=== PATIENT | male | born 1955 | race Caucasian/White ===

== ENCOUNTER 2018-07-13 07:47 | Inpatient (IN) | payer BC ==
[2018-07-13] MEDS ORDERED: DILTIAZEM DRIP BOLUS FROM BAG 1 MG SOLN IV ONE (08:10)
[2018-07-13] MEDS ORDERED: SODIUM CHLORIDE 0.9% 1,000 ML IV STA (08:10)
[2018-07-13] MEDS: DILTIAZEM 50 MG in SODIUM CHLORIDE 0.9% 40 ML IV SCH ×2 (08:34→15:29)
[2018-07-13 08:39] LABS: Basophils # (A) 0.1 k/uL (0-0.2); Basophils % (A) 2 %; Eosinophils # (A) 0.2 k/uL (0-0.7); Eosinophils % (A) 4 %; HCT 44.3 % (39.0-53.0); HGB 13.9 gm/dL (13.0-17.5); Lymphocytes # (A) 1.2 k/uL (1.0-4.8); Lymphocytes % (A) 24 %; MCH 28.4 pg (25.0-35.0); MCHC 31.4 g/dL (31.0-37.0); MCV 90.4 fL (80.0-100.0); Mean Platelet Volume 6.5; Monocytes # (A) 0.4 k/uL (0-1.0); Monocytes % (A) 7 %; Neutrophils # (A) 3.1 k/uL (1.3-7.7); Neutrophils % (A) 61 %; Platelet Count 219 k/uL (150-450); RDW 13.6 % (11.5-15.5); WBC 5.1 k/uL (3.8-10.6)
--- NOTE | 2018-07-13 08:42 | ED ---
General Adult HPI - General Chief complaint: Arrhythmia/Palpitations Stated complaint: A fib Time Seen by Provider: 07/13/18 07:56 Source: patient, RN notes reviewed, old records reviewed Mode of arrival: wheelchair Limitations: no limitations - History of Present Illness Initial comments: This is a 63-year-old male the ER for evaluation. They presents for evaluation during new-onset atrial fibrillation. Patient sent in from preop for wrist surgery. Patient denies any symptoms earlier in the day he was having a little bit of palpitations earlier today. There is significant symptoms of tachycardia palpitations prior. No history of heart disease, no new medications. Patient denies any recent fevers drug or alcohol abuse - Related Data Home Medications Medication Instructions Recorded Confirmed Losartan Potassium [Cozaar] 100 mg PO DAILY 06/09/14 07/13/18 Pravastatin Sodium [Pravachol] 40 mg PO DAILY 06/09/14 07/13/18 Multivit-Min/FA/Lycopen/Lutein 1 tab PO DAILY 05/25/16 07/13/18 [Centrum Silver Tablet] Ibuprofen [Motrin] 800 mg PO TID PRN 07/13/18 07/13/18 Tamsulosin HCl [Flomax] 0.4 mg PO BID 07/13/18 07/13/18 Ubidecarenone [Co Q-10] 100 mg PO DAILY 07/13/18 07/13/18 Previous Rx's Medication Instructions Recorded EPINEPHrine [Epipen 2-Iraj] 0.3 mg IM ONCE PRN #1 ml 06/09/14 Allergies Allergy/AdvReac Type Severity Reaction Status Date / Time venom-honey bee Allergy Anaphylaxis Verified 07/13/18 08:43 [bee venom (honey bee)] Review of Systems ROS Statement: Those systems with pertinent positive or pertinent negative responses have been documented in the HPI. ROS Other: All systems not noted in ROS Statement are negative. Past Medical History Past Medical History: Hyperlipidemia, Hypertension Additional Past Medical History / Comment(s): brain tumors History of Any Multi-Drug Resistant Organisms: None Reported Past Surgical History: Joint Replacement Additional Past Surgical History / Comment(s): nael hip replacement Past Psychological History: No Psychological Hx Reported Smoking Status: Former smoker Past Alcohol Use History: Daily Past Drug Use History: None Reported General Exam Limitations: no limitations General appearance: alert, in no apparent distress Head exam: Present: atraumatic, normocephalic, normal inspection Eye exam: Present: normal appearance, PERRL, EOMI. Absent: scleral icterus, conjunctival injection, periorbital swelling ENT exam: Present: normal exam, mucous membranes moist Neck exam: Present: normal inspection. Absent: tenderness, meningismus, lymphadenopathy Respiratory exam: Present: normal lung sounds bilaterally. Absent: respiratory distress, wheezes, rales, rhonchi, stridor Cardiovascular Exam: Present: tachycardia, irregular rhythm, normal heart sounds. Absent: systolic murmur, diastolic murmur, rubs, gallop, clicks GI/Abdominal exam: Present: soft, normal bowel sounds. Absent: distended, tenderness, guarding, rebound, rigid Extremities exam: Present: normal inspection, full ROM, normal capillary refill. Absent: tenderness, pedal edema, joint swelling, calf tenderness Back exam: Present: normal inspection Neurological exam: Present: alert, oriented X3, CN II-XII intact Psychiatric exam: Present: normal affect, normal mood Skin exam: Present: warm, dry, intact, normal color. Absent: rash Course Vital Signs 07/13/18 07/13/18 07/13/18 07:50 08:30 08:40 Temperature 98.7 F Pulse Rate 64 115 H 99 Respiratory 18 18 18 Rate Blood Pressure 113/69 125/77 127/70 O2 Sat by Pulse 97 99 99 Oximetry 07/13/18 07/13/18 09:25 10:24 Temperature Pulse Rate 88 95 Respiratory 16 16 Rate Blood Pressure 129/70 126/72 O2 Sat by Pulse 98 98 Oximetry - Reevaluation(s) Reevaluation #1: 07/13/18 09:47 Patient is showing adequate heart rate control here in the ER Reevaluation #2: 07/13/18 09:47 Patient is relatively asymptomatic with no chest pain Reevaluation #3: 07/13/18 09:48 Medical record is reviewed from preop EKG Findings - EKG Comments: EKG Findings:: EKG shows A. fib with RVR rate of 103, QRS 82, QTc 429 Medical Decision Making - Medical Decision Making 63 male new-onset A. fib with RVR will be admitted for cardiology consultation, rate control and anticoagulation - Lab Data Result diagrams: 07/13/18 08:05 07/13/18 08:05 Lab Results 09/05/2307/13/18 07/13/18 Range/Units 08:05 08:05 08:05 WBC 5.1 (3.8-10.6) k/uL RBC 4.90 (4.30-5.90) m/uL Hgb 13.9 (13.0-17.5) gm/dL Hct 44.3 (39.0-53.0) % MCV 90.4 (80.0-100.0) fL MCH 28.4 (25.0-35.0) pg MCHC 31.4 (31.0-37.0) g/dL RDW 13.6 (11.5-15.5) % Plt Count 219 (150-450) k/uL Neutrophils % 61 % Lymphocytes % 24 % Monocytes % 7 % Eosinophils % 4 % Basophils % 2 % Neutrophils # 3.1 (1.3-7.7) k/uL Lymphocytes # 1.2 (1.0-4.8) k/uL Monocytes # 0.4 (0-1.0) k/uL Eosinophils # 0.2 (0-0.7) k/uL Basophils # 0.1 (0-0.2) k/uL PT (9.0-12.0) sec INR (<1.2) APTT (22.0-30.0) sec D-Dimer (<0.60) mg/L FEU Sodium 141 (137-145) mmol/L Potassium 4.5 (3.5-5.1) mmol/L Chloride 109 H (98-107) mmol/L Carbon Dioxide 23 (22-30) mmol/L Anion Gap 9 mmol/L BUN 22 H (9-20) mg/dL Creatinine 1.02 (0.66-1.25) mg/dL Est GFR (CKD-EPI)AfAm 90 (>60 ml/min/1.73 sqM) Est GFR (CKD-EPI)NonAf 78 (>60 ml/min/1.73 sqM) Glucose 93 (74-99) mg/dL Calcium 9.4 (8.4-10.2) mg/dL Magnesium 2.0 (1.6-2.3) mg/dL Total Bilirubin 0.7 (0.2-1.3) mg/dL AST 26 (17-59) U/L ALT 27 (21-72) U/L Alkaline Phosphatase 72 (38-126) U/L Total Creatine Kinase 163 (55-170) U/L CK-MB (CK-2) 2.6 H (0.0-2.4) ng/mL CK-MB (CK-2) Rel Index 1.6 Troponin I 0.015 (0.000-0.034) ng/mL Total Protein 7.1 (6.3-8.2) g/dL Albumin 4.0 (3.5-5.0) g/dL TSH 1.900 (0.465-4.680) mIU/L 07/13/18 Range/Units 08:05 WBC (3.8-10.6) k/uL RBC (4.30-5.90) m/uL Hgb (13.0-17.5) gm/dL Hct (39.0-53.0) % MCV (80.0-100.0) fL MCH (25.0-35.0) pg MCHC (31.0-37.0) g/dL RDW (11.5-15.5) % Plt Count (150-450) k/uL Neutrophils % % Lymphocytes % % Monocytes % % Eosinophils % % Basophils % % Neutrophils # (1.3-7.7) k/uL Lymphocytes # (1.0-4.8) k/uL Monocytes # (0-1.0) k/uL Eosinophils # (0-0.7) k/uL Basophils # (0-0.2) k/uL PT 10.6 (9.0-12.0) sec INR 1.1 (<1.2) APTT 23.0 (22.0-30.0) sec D-Dimer 0.60 H (<0.60) mg/L FEU Sodium (137-145) mmol/L Potassium (3.5-5.1) mmol/L Chloride (98-107) mmol/L Carbon Dioxide (22-30) mmol/L Anion Gap mmol/L BUN (9-20) mg/dL Creatinine (0.66-1.25) mg/dL Est GFR (CKD-EPI)AfAm (>60 ml/min/1.73 sqM) Est GFR (CKD-EPI)NonAf (>60 ml/min/1.73 sqM) Glucose (74-99) mg/dL Calcium (8.4-10.2) mg/dL Magnesium (1.6-2.3) mg/dL Total Bilirubin (0.2-1.3) mg/dL AST (17-59) U/L ALT (21-72) U/L Alkaline Phosphatase (38-126) U/L Total Creatine Kinase (55-170) U/L CK-MB (CK-2) (0.0-2.4) ng/mL CK-MB (CK-2) Rel Index Troponin I (0.000-0.034) ng/mL Total Protein (6.3-8.2) g/dL Albumin (3.5-5.0) g/dL TSH (0.465-4.680) mIU/L - Radiology Data Radiology results: report reviewed (Chest x-rays negative CTA chest is negative) , image reviewed Critical Care Time Critical Care Time: Yes Total Critical Care Time: 31 Disposition Clinical Impression: Atrial fibrillation with RVR Disposition: ADMITTED IP TO THIS [facility] Condition: Undetermined Is patient prescribed a controlled substance at d/c from ED?: No Referrals: Jermaine Bhakta MD [Primary Care Provider] - 1-2 days
[2018-07-13 08:50] LABS: INR 1.1 (<1.2); Prothrombin Time 10.6 sec (9.0-12.0)
[2018-07-13 08:57] LABS: Calcium 9.4 mg/dL (8.4-10.2); Potassium 4.5 mmol/L (3.5-5.1); Total Bilirubin 0.7 mg/dL (0.2-1.3); Total Protein 7.1 g/dL (6.3-8.2)
[2018-07-13 09:05] LABS: D-Dimer 0.6 mg/L FEU (<0.60)
[2018-07-13 09:17] LABS: Creatine Kinase MB 2.6 ng/mL (0.0-2.4); Troponin I 0.015 ng/mL (0.000-0.034)
--- NOTE | 2018-07-13 10:15 | CT ---
CT CHEST FOR PULMONARY EMBOLISM. EXAMINATION TYPE: CT angio chest DATE OF EXAM: 07/13/2018 INDICATION: Atrial fib, chest pains CT DLP: 526 mGycm, Automated exposure control for dose reduction was used. CONTRAST: Patient injected with 100 mL of Isovue 370. COMPARISON: None TECHNIQUE: CT of the chest is performed on a spiral scan at 2 mm thick sections. Study is performed with intravenous contrast timed for evaluation for pulmonary embolism. This will limit additional po rtions of the evaluation. 3-D MIP images reconstructed by the technologist are reviewed on the compu ter in the coronal and sagittal planes. FINDINGS: No persistent filling defects are evident to suggest an acute pulmonary embolism. No mediastinal or hilar adenopathy enlarged by CT criteria is evident. The ascending aorta diameter at the level of the main pulmonary artery is 3.8 cm. The main pulmonary artery diameter at the bifur cation is 3.4 cm. Lung windows are clear. Limited CT section through the upper abdomen. There may be a peripelvic cyst superior pole left kidne y. Mild left hydronephrosis is not excluded IMPRESSIONS: 1. No acute pulmonary embolism. 2. Mild left hydronephrosis versus peripelvic cyst is not excluded within the visualized portions of the left kidney.
[2018-07-13] MEDS ORDERED: HEPARIN SODIUM,PORCINE 5,000 UNIT/ML 1 ML VIAL IV ONE (10:24)
[2018-07-13] MEDS ORDERED: NITROGLYCERIN SL TABS 0.4 MG TAB SUBLINGUAL PRN (10:24)
[2018-07-13] MEDS ORDERED: HEPARIN SOD,PORK IN 0.45% NACL 25,000 UNIT in 0.45% NACL 1 500ML.BAG IV SCH (10:30)
[2018-07-13 13:27] VITALS: BMI 29.0
[2018-07-13] MEDS ORDERED: ACETAMINOPHEN TAB 325 MG TAB PO PRN (14:01)
[2018-07-13] MEDS ORDERED: LORazepam 2 MG/ML INJ IV PRN ×3 (14:05)
[2018-07-13] MEDS ORDERED: METOPROLOL TARTRATE 50 MG TAB PO STA (14:11)
--- NOTE | 2018-07-13 14:25 | P.HPIM ---
History of Present Illness H&P Date: 07/13/18 Chief Complaint: New onset A-fib The patient is a 63-year-old male with a past medical history of hypertension, hyperlipidemia, carpal tunnel syndrome (s/p L wrist surgery 4 weeks ago) and BPH who presented to the ED after undergoing a preop evaluation for scheduled right wrist surgery for carpal tunnel syndrome where he was found to have atrial fibrillation. The patient notes that earlier this morning while driving for his preop appointment, he had an episode of dizziness which lasted roughly 5 minutes, described as lightheadedness without syncope. He denied any associated palpitations, chest pain, shortness of breath, nausea, vomiting, headache, weakness, numbness, or tingling. He had never experienced dizziness in the past though endorsed occasional shortness of breath improved by an inhaler prescribed by his PMD, which she attributes to his seasonal allergies. He further denied fever, chills, cough, abdominal pain, recent travel, or sick contacts. He denied any history of CVA or TIA in the past or having ever experienced numbness, tingling, weakness, speech impairment, or facial asymmetry. Review of Systems Pertinent positives and negatives as per HPI. All other ROS negative. Past Medical History Past Medical History: Hyperlipidemia, Hypertension Additional Past Medical History / Comment(s): Carpal tunnel syndrome History of Any Multi-Drug Resistant Organisms: None Reported Past Surgical History: Joint Replacement Additional Past Surgical History / Comment(s): nael hip replacement Past Psychological History: No Psychological Hx Reported Smoking Status: Former smoker (1 PPD for 13 years, quit 34 years ago) Past Alcohol Use History: Daily Past Drug Use History: None Reported - Past Family History Father Family Medical History: Myocardial Infarction ([place]) Mother Additional Family Medical History / Comment(s): passed from complications r/t c- diff Medications and Allergies Home Medications Medication Instructions Recorded Confirmed Type EPINEPHrine [Epipen 2-Iraj] 0.3 mg IM ONCE PRN #1 ml 06/09/14 07/13/18 Rx Losartan Potassium [Cozaar] 100 mg PO DAILY 06/09/14 07/13/18 History Pravastatin Sodium [Pravachol] 40 mg PO DAILY 06/09/14 07/13/18 History Multivit-Min/FA/Lycopen/Lutein 1 tab PO DAILY 05/25/16 07/13/18 History [Centrum Silver Tablet] Ibuprofen [Motrin] 800 mg PO TID PRN 07/13/18 07/13/18 History Tamsulosin HCl [Flomax] 0.4 mg PO BID 07/13/18 07/13/18 History Ubidecarenone [Co Q-10] 100 mg PO DAILY 07/13/18 07/13/18 History Allergies Allergy/AdvReac Type Severity Reaction Status Date / Time venom-honey bee Allergy Anaphylaxis Verified 07/13/18 08:43 [bee venom (honey bee)] Physical Exam Vitals: Vital Signs Temp Pulse Resp BP Pulse Ox 07/13/18 11:37 80 16 138/82 98 07/13/18 10:24 95 16 126/72 98 07/13/18 09:25 88 16 129/70 98 07/13/18 08:40 99 18 127/70 99 07/13/18 08:30 115 H 18 125/77 99 07/13/18 07:50 98.7 F 64 18 113/69 97 Intake and Output 07/12/18 07/13/18 07/13/18 22:59 06:59 14:59 Other: Weight 90.718 kg General: non toxic, no distress, appears at stated age, normal weight Derm: no unusual rashes/lesions no unusual ecchymosis, warm, dry Head: atraumatic, normocephalic, symmetric Eyes: EOMI, no lid lag, anicteric sclera, pupils equal round reactive to light ENT: Nose and ears atraumatic, no thrush, no pharyngeal erythema Neck: No thyromegaly, no cervical lymphadenopathy, trachea midline, supple Mouth: no lip lesion, mucus membranes moist Cardiovascular: S1S2 reg, no murmur, positive posterior tibial pulse bilateral, no edema, capillary refill less than 2 seconds Lungs: CTA bilateral, no rhonchi, no rales , no accessory muscle use Abdominal: soft, nontender to palpation, no guarding, no appreciable organomegaly, normal bowel sounds Ext: no gross muscle atrophy, muscle strength 5 out of 5 in all 4 extremities grossly, no contractures, Neuro: CN II-XI grossly intact, light touch intact all 4 extremities, finger to nose within normal limits, Psych: Alert, oriented, appropriate affect Results CBC & Chem 7: 07/13/18 08:05 09/07/18 08:05 Labs: Abnormal Lab Results - Last 24 Hours (Table) 07/13/18 07/13/18 07/13/18 Range/Units 08:05 08:05 08:05 D-Dimer 0.60 H (<0.60) mg/L FEU Chloride 109 H (98-107) mmol/L BUN 22 H (9-20) mg/dL CK-MB (CK-2) 2.6 H (0.0-2.4) ng/mL Assessment and Plan Plan: 63-year-old male with a past medical history of hypertension, hyperlipidemia, carpal tunnel syndrome, and BPH, presented to the ED with incidentally discovered A. fib on a preop evaluation. Troponin negative, d-dimer borderline positive with CTA chest negative for PE, EKG with A. fib and RVR, subsequently converted to sinus. New onset A-fib - CHADS-VASc score: 1 - Patient received ASA 325 mg in ED. Will hold off on heparin IV infusion for now in light of low CHADS-VASc. - Will order Echocardiogram. If negative for valvular disease, patient can be started on NOAC - Received Lopressor 50 mg in ED. Will resume 50 mg bid and consider DCing patient's home Losartan if BP borderline - Telemetry monitoring - Dizziness possibly secondary to A-fib HTN - Will hold off on Losartan home-dose for now. C/w Lopressor 50 mg bid HLD - C/w Pravachol BPH - C/w Flomax DVT/GI prophyl - IPCDs - No indication for GI prophy. The patient is placed in observation status with an anticipated less than 2 midnight stay for evaluation of A. fib with RVR. Surrogate decision-maker: CODE STATUS: Full code DVT prophylaxis: Lovenox Discussed with: , ED attending, floor nurse Anticipated discharge date: [address]: home A total of 65 minutes was spent on the care of this complex patient more than 50 % of the time was spent in counseling and care coordination. Time with Patient: Greater than 30
[2018-07-13 14:41] LABS: Troponin I 0.017 ng/mL (0.000-0.034)
[2018-07-13] MEDS: ENOXAPARIN 40 MG/0.4 ML SYRINGE SQ SCH (15:28)
--- NOTE | 2018-07-13 16:16 | P.CRDCN ---
History of Present Illness Consult date: 07/13/18 Requesting physician: Blair Miles Reason for Consult (text): new onset atrial fibrillation Chief complaint: shortness of breath and lightheadedness History of present illness: This is a pleasant 63-year-old gentleman with a history of hyperlipidemia, hypertension and family history of premature CAD. Was scheduled to undergo carpal tunnel surgery this morning and was found to be in atrial fibrillation with a heart rate in the low 100s. He was directed to go to the emergency department at which time EKG showed atrial fibrillation with a heart rate of 103. According to the patient he's been having episodes of shortness of breath on and off for the last year that he could not attribute to anything specific, felt it may have been related to his ALLERGIES. Also complaining of some feelings of lightheadedness. D-dimer was elevated and a CTA of the chest was done that showed no evidence for PE. Laboratory values showed a BUN of 22, creatinine 1.02 and troponins of 0.015 and 0.017. TSH is normal. He follows with Dr. Bhakta in the outpatient setting and according to the patient had an EKG done in March that was normal. He's been initiated on a Cardizem drip and metoprolol tartrate 50 mg by mouth twice a day. He is currently maintaining sinus rhythm. Past Medical History Past Medical History: Hyperlipidemia, Hypertension Additional Past Medical History / Comment(s): Carpal tunnel syndrome History of Any Multi-Drug Resistant Organisms: None Reported Past Surgical History: Joint Replacement Additional Past Surgical History / Comment(s): nael hip replacement Past Psychological History: No Psychological Hx Reported Smoking Status: Former smoker (1 PPD for 13 years, quit 34 years ago) Past Alcohol Use History: Daily Past Drug Use History: None Reported - Past Family History Father Family Medical History: Myocardial Infarction ([place]) Mother Additional Family Medical History / Comment(s): passed from complications r/t c- diff Medications and Allergies Home Medications Medication Instructions Recorded Confirmed Type EPINEPHrine [Epipen 2-Iraj] 0.3 mg IM ONCE PRN #1 ml 06/09/14 07/13/18 Rx Losartan Potassium [Cozaar] 100 mg PO DAILY 06/09/14 07/13/18 History Pravastatin Sodium [Pravachol] 40 mg PO DAILY 06/09/14 07/13/18 History Multivit-Min/FA/Lycopen/Lutein 1 tab PO DAILY 05/25/16 07/13/18 History [Centrum Silver Tablet] Ibuprofen [Motrin] 800 mg PO TID PRN 07/13/18 07/13/18 History Tamsulosin HCl [Flomax] 0.4 mg PO BID 07/13/18 07/13/18 History Ubidecarenone [Co Q-10] 100 mg PO DAILY 07/13/18 07/13/18 History Allergies Allergy/AdvReac Type Severity Reaction Status Date / Time venom-honey bee Allergy Anaphylaxis Verified 07/13/18 08:43 [bee venom (honey bee)] Physical Exam Vitals: Vital Signs Temp Pulse Pulse Resp BP BP Pulse Ox 07/13/18 12:20 98 F 62 16 132/76 98 07/13/18 11:37 80 16 138/82 98 07/13/18 10:24 95 16 126/72 98 07/13/18 09:25 88 16 129/70 98 07/13/18 08:40 99 18 127/70 99 07/13/18 08:30 115 H 18 125/77 99 07/13/18 07:50 98.7 F 64 18 113/69 97 Intake and Output 07/13/18 07/13/18 07/13/18 06:59 14:59 22:59 Intake Total 180 34.583 Balance 180 34.583 Intake: Intake, IV Titration 34.583 Amount Diltiazem 50 mg In Sodium 34.583 Chloride 0.9% 40 ml @ 5 MG/HR 5 mls/hr IV .Q10H COUNT INCLUDES THE [facility] Rx#:[id number] Oral 180 Other: Weight 92 kg PHYSICAL EXAMINATION: HEENT: [Head is atraumatic, normocephalic. Pupils equal, round. Neck is supple. There is no elevated jugular venous pressure.] HEART EXAMINATION: [Heart sounds regular, S1 and S2 normal. No murmur or gallop heard.] CHEST EXAMINATION:[ Lungs are clear to auscultation and precussion. No chest wall tenderness is noted on palpation or with deep breathing.] ABDOMEN: [ Soft, nontender. Bowel sounds are heard. No organomegaly noted]. EXTREMITIES:[ 2+ peripheral pulses with no evidence of peripheral edema and no calf tenderness noted]. NEUROLOGIC [patient is awake, alert and oriented x3.] . Results 07/13/18 08:05 07/13/18 08:05 Cardiac Enzymes 07/13/18 07/13/18 07/13/18 Range/Units 08:05 08:05 14:00 AST 26 (17-59) U/L CK-MB (CK-2) 2.6 H 2.0 (0.0-2.4) ng/mL Troponin I 0.015 0.017 (0.000-0.034) ng/mL Coagulation 07/13/18 07/13/18 Range/Units 08:05 14:00 PT 10.6 (9.0-12.0) sec APTT 23.0 22.5 (22.0-30.0) sec CBC 07/13/18 Range/Units 08:05 WBC 5.1 (3.8-10.6) k/uL RBC 4.90 (4.30-5.90) m/uL Hgb 13.9 (13.0-17.5) gm/dL Hct 44.3 (39.0-53.0) % Plt Count 219 (150-450) k/uL Comprehensive Metabolic Panel 07/13/18 Range/Units 08:05 Sodium 141 (137-145) mmol/L Potassium 4.5 (3.5-5.1) mmol/L Chloride 109 H (98-107) mmol/L Carbon Dioxide 23 (22-30) mmol/L BUN 22 H (9-20) mg/dL Creatinine 1.02 (0.66-1.25) mg/dL Glucose 93 (74-99) mg/dL Calcium 9.4 (8.4-10.2) mg/dL AST 26 (17-59) U/L ALT 27 (21-72) U/L Alkaline Phosphatase 72 (38-126) U/L Total Protein 7.1 (6.3-8.2) g/dL Albumin 4.0 (3.5-5.0) g/dL Current Medications Generic Name Dose Route Start Last Admin Trade Name Freq PRN Reason Stop Dose Admin Acetaminophen 650 mg 07/13/18 14:01 Tylenol Tab PO Q6HR PRN Mild Pain or Fever > 100.5 Aspirin 325 mg 07/14/18 09:00 Aspirin PO DAILY SAW Enoxaparin Sodium 40 mg 07/13/18 14:15 07/13/18 15:28 Lovenox SQ 40 mg DAILY SAW Administration Diltiazem HCl 50 mg/ Sodium 50 mls @ 5 mls/hr 07/13/18 08:15 07/13/18 15:29 Chloride IV 5 mg/hr .Q10H SAW 5 mls/hr Administration 5 MG/HR Lorazepam 1 mg 07/13/18 14:05 Ativan IV Q2HR PRN CIWA 8 or 9 Lorazepam 1 mg 07/13/18 14:05 Ativan IV Q1HR PRN CIWA 10 to 15 Lorazepam 2 mg 07/13/18 14:05 Ativan IV 07/15/18 14:06 Q10M PRN CIWA 16 or higher Metoprolol Tartrate 50 mg 07/13/18 21:00 Lopressor PO BID SAW Nitroglycerin 0.4 mg 07/13/18 10:24 Nitrostat SUBLINGUAL Q5M PRN Chest Pain Pravastatin Sodium 40 mg 07/14/18 09:00 Pravachol PO DAILY SAW Tamsulosin HCl 0.4 mg 07/13/18 21:00 Flomax PO BID SAW Intake and Output 07/13/18 07/13/18 07/13/18 06:59 14:59 22:59 Intake Total 180 34.583 Balance 180 34.583 Intake: Intake, IV Titration 34.583 Amount Diltiazem 50 mg In Sodium 34.583 Chloride 0.9% 40 ml @ 5 MG/HR 5 mls/hr IV .Q10H SAW Rx#:[id number] Oral 180 Other: Weight 92 kg Patient Weight 07/14/18 06:59 Weight 92 kg 07/13/18 08:05 07/13/18 08:05 EKG Interpretations (text) Atrial fibrillation with a heart rate of 103 Assessment and Plan Assessment: #1 paroxysmal atrial fibrillation #2 hypertension #3 family history of premature CAD Plan: From cardiology perspective, we will review 2-D echo with Doppler. Discontinue Cardizem drip at this time. Depending on results of echocardiogram will determine need for anticoagulation. Further recommendations to follow. [employer]IO INSTALLER note has been reviewed, I agree with a documented findings and plan of care. Patient was seen and examined.
[2018-07-13 21:11] LABS: Creatine Kinase MB 1.8 ng/mL (0.0-2.4); Troponin I 0.019 ng/mL (0.000-0.034)
[2018-07-13] MEDS: TAMSULOSIN 0.4 MG CAP.ER.24H PO SCH (21:50)
[2018-07-13] MEDS: METOPROLOL TARTRATE 50 MG TAB PO SCH (21:52)
[2018-07-14 04:00] VITALS: RESP 18
[2018-07-14 06:58] LABS: INR 1.1 (<1.2); Partial Thromboplastin Time 23.1 sec (22.0-30.0); Prothrombin Time 10.9 sec (9.0-12.0)
[2018-07-14 06:59] LABS: HCT 38.5 % (39.0-53.0); HGB 12.3 gm/dL (13.0-17.5); MCH 29.1 pg (25.0-35.0); MCHC 31.9 g/dL (31.0-37.0); MCV 91.2 fL (80.0-100.0); Mean Platelet Volume 6.7; Platelet Count 196 k/uL (150-450); RBC 4.22 m/uL (4.30-5.90); RDW 13.5 % (11.5-15.5); WBC 4.2 k/uL (3.8-10.6)
[2018-07-14 07:08] LABS: Anion Gap 8 mmol/L; Blood Urea Nitrogen 19 mg/dL (9-20); Calcium 9.2 mg/dL (8.4-10.2); Carbon Dioxide 25 mmol/L (22-30); Chloride 108 mmol/L (98-107); Cholesterol 155 mg/dL (<200); Glucose 85 mg/dL (74-99); HDL Cholesterol 43 mg/dL (40-60); LDL Cholesterol,Calculated 81 mg/dL (0-99); Potassium 4.6 mmol/L (3.5-5.1); Sodium 141 mmol/L (137-145); Triglycerides 154 mg/dL (<150)
[2018-07-14] MEDS: TAMSULOSIN 0.4 MG CAP.ER.24H PO SCH (07:56)
[2018-07-14] MEDS: ENOXAPARIN 40 MG/0.4 ML SYRINGE SQ SCH (07:57)
[2018-07-14] MEDS: METOPROLOL TARTRATE 50 MG TAB PO SCH (07:57)
[2018-07-14 08:27] VITALS: BP 128/82; PULSE 70; TEMP 97.4
[2018-07-14] MEDS ORDERED: ASPIRIN 325 MG TAB PO SCH (09:00)
[2018-07-14] MEDS ORDERED: PRAVASTATIN SODIUM 40 MG TAB PO SCH (09:00)
--- NOTE | 2018-07-14 09:05 | ECHOF ---
Referral Reason:New onset A-fib MEASUREMENTS -------- HEIGHT: 177.8 cm WEIGHT: 90.7 kg BP: 132/76 RVIDd: 3.5 cm (< 3.3) IVSd: 1.5 cm (0.6 - 1.1) LVIDd: 4.4 cm (3.9 - 5.3) LVPWd: 1.3 cm (0.6 - 1.1) IVSs: 1.9 cm LVIDs: 3.2 cm LVPWs: 1.6 cm LA Diam: 3.8 cm (2.7 - 3.8) LAESV Index (A-L): 30.39 ml/m Ao Diam: 3.8 cm (2.0 - 3.7) AV Cusp: 2.3 cm (1.5 - 2.6) LA Diam: 3.8 cm (2.7 - 3.8) MV EXCURSION: 14.382 mm (> 18.000) MV EF SLOPE: 93 mm/s (70 - 150) EPSS: 0.4 cm MV E Boyd: 0.57 m/s MV DecT: 252 ms MV A Boyd: 0.74 m/s MV E/A Ratio: 0.77 RAP: 5.00 mmHg RVSP: 23.52 mmHg FINDINGS -------- Atrial fibrillation. This was a technically good study. The left ventricular size is normal. There is mild concentric left ventricular hypertrophy. Overa ll left ventricular systolic function is low-normal with, an EF between 50 - 55 %. The right ventricle is normal in size. The left atrial size is normal. The right atrial size is normal. There is mild aortic regurgitation. Mild mitral annular calcification present. Mild mitral regurgitation is present. Mild tricuspid regurgitation present. There is no evidence of pulmonary hypertension. The right v entricular systolic pressure, as measured by Doppler, is 23.52mmHg. Trace/mild (physiologic) pulmonic regurgitation. The aortic root size is normal. There is no pericardial effusion. CONCLUSIONS -------- 1. The left ventricular size is normal. 2. There is mild concentric left ventricular hypertrophy. 3. Overall left ventricular systolic function is low-normal with, an EF between 50 - 55 %. 4. The right ventricle is normal in size. 5. The left atrial size is normal. 6. The right atrial size is normal. 7. There is mild aortic regurgitation. 8. Mild mitral annular calcification present. 9. Mild mitral regurgitation is present. 10. Mild tricuspid regurgitation present. 11. There is no evidence of pulmonary hypertension. 12. The right ventricular systolic pressure, as measured by Doppler, is 23.52mmHg. 13. Trace/mild (physiologic) pulmonic regurgitation. 14. The aortic root size is normal. 15. There is no pericardial effusion. DERRICK BUILDER: Nava James RDCS
--- NOTE | 2018-07-14 11:01 | P.DS ---
Providers Date of admission: 07/13/18 10:24 Expected date of discharge: 07/14/18 Attending physician: Blair Miles MD Consults: 07/13/18 10:24 Consult Physician Urgent Consulting Provider: Aline Junior Consult Reason/Comments: afib Do you want consulting provider notified?: Yes Primary care physician: [place] Hospital Course: The patient is a 63-year-old male with a past medical history of hypertension, hyperlipidemia, carpal tunnel syndrome and BPH who presented to the ED after a preoperative evaluation found him to be in atrial fibrillation. The patient's d -dimer was 0.[address] angiogram negative for PE. Patient's EKG showed A. fib with RVR. CHADSVASc score was 1. He was given high-dose aspirin in the ED and started on Lopressor twice a day by mouth. Echocardiogram was unremarkable with EF 50-55%. Patient's options were discussed with him and a decision was made to start Xarelto once daily. The telemetry review was unremarkable. He is presently stable and ready for discharge to home. General: Awake, alert, in no acute distress HEENT: NC/AT, anicteric sclerae, moist conjunctiva, no lid-lag, PERRLA, oropharynx clear, no erythema, exudates Cardiovascular: S1/S2 wnl, no murmurs, rubs, or gallops Lungs: Clear to auscultation, normal respiratory effort, no accessory muscle use Abdominal: Soft, nontender, non-distended, no guarding, rebound, or rigidity, normoactive bowel sounds Skin: Warm, dry Extremities: No edema or contractures Psychiatric: Alert and oriented to person, place and time, appropriate affect, Intact judgment Neuro: CN II-XI grossly intact, sensation to light touch grossly present throughout, no focal sensory deficits Discharge diagnosis: Paroxysmal atrial fibrillation with RVR, hypertension, hyperlipidemia, BPH. A total of 35 minutes were spent preparing this complex discharge summary. Pertinent Studies: Echocardiogram: Mild concentric left ventricular hypertrophy. Low normal left ventricular systolic function EF 50-55%. Mild mitral regurgitation, mild aortic stenosis, mild tricuspid regurgitation, normal left atrial size. Chest CTA: No acute pulmonary embolism. Mild left hydronephrosis versus peripelvic cyst not excluded within the visualized portion of the left kidney. Patient Condition at Discharge: Good Plan - Discharge Summary Discharge Rx Participant: Yes New Discharge Prescriptions: New Metoprolol Tartrate [Lopressor] 50 mg PO BID #60 tab Rivaroxaban [Xarelto] 20 mg PO DAILY #60 tab Continue Pravastatin Sodium [Pravachol] 40 mg PO DAILY EPINEPHrine [Epipen 2-Iraj] 0.3 mg IM ONCE PRN #1 ml PRN Reason: Anaphylaxis Multivit-Min/FA/Lycopen/Lutein [Centrum Silver Tablet] 1 tab PO DAILY Tamsulosin HCl [Flomax] 0.4 mg PO BID Ubidecarenone [Co Q-10] 100 mg PO DAILY Discontinued Losartan Potassium [Cozaar] 100 mg PO DAILY Ibuprofen [Motrin] 800 mg PO TID PRN PRN Reason: Pain Discharge Medication List EPINEPHrine [Epipen 2-Iraj] 0.3 mg IM ONCE PRN #1 ml 06/09/14 [Rx] Pravastatin Sodium [Pravachol] 40 mg PO DAILY 06/09/14 [History] Multivit-Min/FA/Lycopen/Lutein [Centrum Silver Tablet] 1 tab PO DAILY 05/25/16 [ History] Tamsulosin HCl [Flomax] 0.4 mg PO BID 07/13/18 [History] Ubidecarenone [Co Q-10] 100 mg PO DAILY 07/13/18 [History] Metoprolol Tartrate [Lopressor] 50 mg PO BID #60 tab 07/14/18 [Rx] Rivaroxaban [Xarelto] 20 mg PO DAILY #60 tab 07/14/18 [Rx] Follow up Appointment(s)/Referral(s): Jermaine Bhakta MD [Primary Care Provider] - 1-2 days Wes Calle MD [STAFF PHYSICIAN] - 1 Week Patient Instructions/Handouts: A-fib (Atrial Fibrillation) (DC) Activity/Diet/Wound Care/Special Instructions: Please discontinue the Losartan. Discharge Disposition: HOME SELF-CARE
--- NOTE | 2018-07-14 12:21 | P.PN ---
Subjective Progress Note Date: 07/14/18 This is a pleasant 63-year-old gentleman with a history of hyperlipidemia, hypertension and family history of premature CAD. Was scheduled to undergo carpal tunnel surgery this morning and was found to be in atrial fibrillation with a heart rate in the low 100s. He was directed to go to the emergency department at which time EKG showed atrial fibrillation with a heart rate of 103. According to the patient he's been having episodes of shortness of breath on and off for the last year that he could not attribute to anything specific, felt it may have been related to his ALLERGIES. Also complaining of some feelings of lightheadedness. D-dimer was elevated and a CTA of the chest was done that showed no evidence for PE. Laboratory values showed a BUN of 22, creatinine 1.02 and troponins of 0.015, 0.017 and 0.019. TSH is normal. He follows with Dr. Bhakta in the outpatient setting and according to the patient had an EKG done in March that was normal. He remains on metoprolol tartrate 50 mg by mouth twice a day. He is currently maintaining sinus rhythm. Echocardiogram showed a low-normal LV systolic function with an ejection fraction between 50-55%, mild aortic regurgitation, mild mitral regurgitation and mild tricuspid regurgitation. Objective - Vital Signs Vital signs: Vital Signs Temp 97.4 F L 07/14/18 08:00 Pulse 70 07/14/18 08:00 Resp 18 07/14/18 08:00 BP 128/82 07/14/18 08:00 Pulse Ox 97 07/14/18 08:00 Intake & Output 07/13/18 07/14/18 07/14/18 18:59 06:59 18:59 Intake Total 214.583 Output Total 350 Balance 214.583 -350 Weight 92 kg 91.8 kg Intake: Intake, IV Titration 34.583 Amount Diltiazem 50 mg In Sodium 34.583 Chloride 0.9% 40 ml @ 5 MG/HR 5 mls/hr IV .Q10H [facility] Rx#:[id number] Oral 180 Output: Urine 350 Other: Voiding Method Toilet # Voids 1 - Exam PHYSICAL EXAMINATION: HEENT: [Head is atraumatic, normocephalic. Pupils equal, round. Neck is supple. There is no elevated jugular venous pressure.] HEART EXAMINATION: [Heart sounds regular, S1 and S2 normal. No murmur or gallop heard.] CHEST EXAMINATION:[ Lungs are clear to auscultation and precussion. No chest wall tenderness is noted on palpation or with deep breathing.] ABDOMEN: [ Soft, nontender. Bowel sounds are heard. No organomegaly noted]. EXTREMITIES:[ 2+ peripheral pulses with no evidence of peripheral edema and no calf tenderness noted]. NEUROLOGIC [patient is awake, alert and oriented x3.] - Labs CBC & Chem 7: 07/14/18 06:19 07/14/18 06:19 Labs: Abnormal Lab Results - Last 24 Hours (Table) 07/14/18 07/14/18 Range/Units 06:19 06:19 RBC 4.22 L (4.30-5.90) m/uL Hgb 12.3 L (13.0-17.5) gm/dL Hct 38.5 L (39.0-53.0) % Chloride 108 H (98-107) mmol/L Triglycerides 154 H (<150) mg/dL Assessment and Plan Assessment: #1 paroxysmal atrial fibrillation #2 hypertension #3 family history of premature CAD Plan: From cardiology perspective, patient may be discharged home. He will go home on metoprolol tartrate 50 mg by mouth daily as well as Xarelto 20 mg by mouth daily. He will follow-up in the office with Dr. TRAVIS Calle in the next 2 weeks. Patient will be scheduled at that time for stress test. MARKETING TEACHER note has been reviewed, I agree with a documented findings and plan of care. Patient was seen and examined.
== END 2018-07-14 12:38 | disposition home or self-care (01) | DRG 310 ==
LOC: EC 07:47 → 6SEL 10:24
PROVIDERS: ADMIT Family Medicine; ATTEND Family Medicine
DX: I48.0 Paroxysmal atrial fibrillation (principal); E78.5 Hyperlipidemia, unspecified; I08.3 Combined rheumatic disorders of mitral, aortic and tricuspid valves; I10 Essential (primary) hypertension; N40.0 Benign prostatic hyperplasia without lower urinary tract symptoms; Z79.899 Other long term (current) drug therapy; Z82.49 Family history of ischemic heart disease and other diseases of the circulatory system; Z87.891 Personal history of nicotine dependence; Z96.643 Presence of artificial hip joint, bilateral; Z91.030 Bee allergy status
CPT/HCPCS: 36415; 71275; 80048; 80053; 80061; 82550; 82553; 83735; 84443; 84484; 85025; 85027; 85049; 85379; 85610; 85730; 93005; 93306; 96365; 96366; 96376; 99291

== ENCOUNTER 2019-04-29 08:24 | Day surgery (SDC) | payer MEDICARE, BC ==
[2019-04-26 11:29] VITALS: BMI 28.7
[~2019-04-29 08:24] MED LIST: LACTATED RINGERS 1,000 ML IV SCH; LIDOCAINE 1% 20 ML VIAL (10MG/ML) FOR IV START INTRADERMA PRN
[2019-04-29 08:46] VITALS: TEMP 98.6
[2019-04-29] MEDS ORDERED: PROPOFOL 10 MG/ML 20 ML VIAL IV ONE (10:46)
--- NOTE | 2019-04-29 11:16 | P.PCN ---
Date of Procedure: 04/29/19 Procedure(s) Performed: Procedure: Total colonoscopy. Postoperative diagnosis: Screening for neoplasia, patient has history of polyps. Postoperative diagnosis: Sigmoid diverticulosis with no obvious diverticulitis, strictures polyps or tumors. Preparation: HalfLytely prep. Sedation: Was provided by anesthesia. Brief clinical history: The patient is a 64-year-old male who is scheduled for this evaluation for screening for neoplasia because of history of polyps. His last exam was in 2012. The patient does no abdominal complaints, bleeding or anemia. Procedure: With the patient on his left lateral decubitus position and after informed consent and adequate sedation, the perianal area was inspected and it did not show any fissures or fistulas. There were no masses felt on digital rectal examination. The Olympus CFH 190L video colonoscope was then inserted in the rectum in the usual fashion and advanced to the cecum. Unfortunately, the preparation was less than ideal on the right but there was no obvious polyps or tumors. Several diverticular orifices were seen scattered in the sigmoid with no evidence of acute diverticulitis or strictures. I retroflexed the endoscope in the rectum before the endoscope was withdrawn. Low-grade internal hemorrhoids were noted with no bleeding. The patient tolerated the procedure well. Plan: The patient was reassured. Discussed dietary measures and local care for hemorrhoids. He will follow up with you as planned and I recommended repeat ex am in 5 years.
[2019-04-29 11:45] VITALS: BP 124/76; PULSE 62; RESP 18
== END 2019-04-29 11:47 | disposition home or self-care (01) ==
LOC: ORWHC2ENDO 08:24
DX: Z12.11 Encounter for screening for malignant neoplasm of colon (principal); Z86.010 Personal history of colon polyps; K57.30 Diverticulosis of large intestine without perforation or abscess without bleeding; K64.8 Other hemorrhoids; I10 Essential (primary) hypertension; E78.5 Hyperlipidemia, unspecified; I48.91 Unspecified atrial fibrillation; N40.0 Benign prostatic hyperplasia without lower urinary tract symptoms; G47.33 Obstructive sleep apnea (adult) (pediatric); Z79.01 Long term (current) use of anticoagulants; Z79.899 Other long term (current) drug therapy; Z91.030 Bee allergy status
CPT/HCPCS: G0105; J2704; 45378

== ENCOUNTER → 2020-04-29 | Outpatient (CLI) | payer MEDICARE, BC ==
--- NOTE | 2020-04-29 22:49 | CONS ---
CONSULTATION DATE OF SERVICE: 04/29/2020 This patient is a 65-year-old gentleman who has been evaluated in the sleep center for possible obstructive sleep apnea-hypopnea syndrome. HISTORY OF PRESENT ILLNESS/SLEEP/WAKE EVALUATION: The patient has a history of obstructive sleep apnea many years ago. At present his sleep schedule is from 10 p.m. to 6 a.m. basically 7 days a week. No problems with falling asleep, although he has a TV in the bedroom. He snores and wakes up from sleep 3 times with nocturia and episodes of gasping for air. In the morning he wakes up tired, falling asleep during the day. He takes a nap at 4 or 5 p.m. [place] Sleepiness Scale is increased at 10. No history of hypnagogic hallucinations, sleep paralysis or cataplexy. PAST MEDICAL HISTORY: Past medical history is positive for atrial fibrillation, hypertension, headaches, hyperlipidemia, sinus problems, optic nerve tumor. PAST SURGICAL HISTORY: Brain surgery for optic nerve tumor, bilateral surgery for carpal tunnel syndrome, right knee arthroscopic surgery, bilateral hip replacement, L4-L5 laminectomy. MEDICATIONS: Xarelto, metoprolol, tamsulosin, pravastatin, finasteride, vitamins. SOCIAL HISTORY: Positive for smoking in the past; quit 36 years ago. Alcohol consumption occasional. FAMILY HISTORY: Heart problems, diabetes. REVIEW OF SYSTEMS: Multiple awakenings from sleep, tiredness and sleepiness during the day. PHYSICAL EXAMINATION: GENERAL: A pleasant gentleman without distress. VITAL SIGNS: BP 110/75, HR 82, RR 16, height 5 feet 8 inches, weight 201, body mass index 30.5, temperature 98.3, oxygen saturation at room air 98%. HEENT: PERRLA, EOMI. Evaluation of oropharynx showed tongue protrudes midline. Extremely low position of soft palate. Mallampati IV. NECK: Supple. No JVD. Thyroid is not palpable. Wide neck; 16 inches in circumference. LUNGS: Clear to percussion and to auscultation. Good air exchange. No wheezing or rhonchi. HEART: S1, S2 irregular. ABDOMEN: Slightly obese. EXTREMITIES: No clubbing or cyanosis. MONORAIL CRANE OPERATOR: Awake, alert, and oriented X3. Cranial nerves 2 to 7 intact. There is no fasciculation or atrophy. noted. No focal deficits observed. IMPRESSION: 1. Snoring, episodes of stopped breathing during sleep, extremely low position of soft palate, multiple awakenings with nocturia, history of obstructive sleep apnea in the past; obstructive sleep apnea-hypopnea syndrome. 2. Mild obesity. 3. Atrial fibrillation. 4. Hyperlipidemia. 5. Headaches. 6. Sinus problems. 7. Status post surgery for optic nerve tumor. 8. Status post surgery for bilateral carpal syndrome. 9. Status post right knee arthroscopic surgery. 10.Status post bilateral hip replacement. 11.Status post L4-L5 laminectomy. PLAN: 1. Polysomnography for evaluation of patient's breathing during sleep. 2. CPAP/BiPAP titration if sleep study confirms obstructive sleep apnea-hypopnea syndrome. 3. Preferable position during sleep on the side. 4. No driving if patient feels any sleepiness. 5. I will see patient for follow up visit to explain results of testing and following plan. Thank you very much for referring this patient for consultation. Sincerely, Cory Layton MD, PhD, FAASM Diplomat of [place] [employer] [employer] [place] [employer] Insurance Clerk of [facility] [place] MMODL / SHADN: [id number] /
== END | disposition home or self-care (01) ==
LOC: SLEEP 13:39
PROVIDERS: ATTEND Internal Medicine
DX: G47.33 Obstructive sleep apnea (adult) (pediatric) (principal); I48.91 Unspecified atrial fibrillation; E78.5 Hyperlipidemia, unspecified; R51 Headache; Z98.890 Other specified postprocedural states; Z96.643 Presence of artificial hip joint, bilateral; J34.9 Unspecified disorder of nose and nasal sinuses; Z87.891 Personal history of nicotine dependence; Z79.891 Long term (current) use of opiate analgesic; Z79.899 Other long term (current) drug therapy

== ENCOUNTER → 2020-08-25 | Outpatient (CLI) | payer MEDICARE, BC ==
--- NOTE | 2020-08-25 13:58 | XR ---
EXAMINATION TYPE: XR thoracic spine 3 views complete, XR lumbar spine 3V DATE OF EXAM: 08/25/2020 Comparison: None Clinical History: 65-year-old male M54.5 Low back pain Findings: Thoracic spine: 12 thoracic vertebral bodies. Moderate disc/endplate degenerative change throughout thoracic spine wi th anterior endplate spondylosis mid to lower thoracic spine. Vertebral body heights are preserved. A lignment appears grossly maintained. Lumbar spine: 5 lumbar type vertebral bodies. Moderate degenerative disc disease throughout the lumbar spine for fa xed at L5-S1 with disc space narrowing and vacuum phenomenon. Endplate spondylosis throughout. Hypert rophic facet arthropathy lower lumbar spine. Baastrup's disease mid lumbar spine. No vertebral compre ssion collapse or malalignment. Impression: 1. Thoracic spine: Moderate spondylotic change mid to lower thoracic spine. No vertebral compression collapse or malalignment. 2. Lumbar spine: Moderate multilevel degenerative disc disease, severe at L5-S1. Facet arthropathy lo wer lumbar spine. Baastrup's disease.
== END | disposition home or self-care (01) ==
LOC: RADXRMAIN 10:48
PROVIDERS: ATTEND Internal Medicine
DX: M51.37 Other intervertebral disc degeneration, lumbosacral region (principal); M47.814 Spondylosis without myelopathy or radiculopathy, thoracic region; M47.816 Spondylosis without myelopathy or radiculopathy, lumbar region; M48.26 Kissing spine, lumbar region
CPT/HCPCS: 72072; 72100

== ENCOUNTER → 2020-10-07 | Outpatient (CLI) | payer MEDICARE, BC | END | disposition home or self-care (01) | LOC: LABWHC1 16:23 | PROVIDERS: ATTEND Internal Medicine | DX: Z20.828 Contact with and (suspected) exposure to other viral communicable diseases (principal) | CPT/HCPCS: U0003; C9803 ==

== ENCOUNTER → 2020-10-08 | Outpatient (CLI) | payer MEDICARE, BC ==
--- NOTE | 2020-10-09 01:23 | SFUN ---
SLEEP CENTER FOLLOW UP NOTE DATE OF SERVICE: 10/08/2020. This 65-year-old gentleman who has been followed in Sleep Center for treatment of obstructive sleep apnea-hypopnea syndrome. Recently, patient had a polysomnogram which showed obstructive sleep apnea-hypopnea syndrome in the range of close to severe apnea-hypopnea index 28.6. The patient had CPAP titration and then received CPAP unit. Today is his first visit after he started to use his machine. He sleeps better with the machine, but still has episodes of snoring and episodes of stopped breathing during the sleep according to his . I checked his CPAP unit. Range of the pressure 5-12 automatic regimen. Average pressure 6.9 cm of water. Usage is 28 out of 30 nights for more than 4 hours. Average 6.9 hours per night. Leak 72 L/minute which is very high. Apnea-hypopnea index still in very high range 35, mostly apneas. The patient is using DreamWear mask our original recommendation was different types of the mask Simplus and this mask was used during titration procedure. [place] Sleepiness Scale is 2. MEDICATIONS: Xarelto, metoprolol, tamsulosin, pravastatin, finasteride, vitamins. PHYSICAL EXAMINATION: GENERAL: Patient in no distress. VITAL SIGNS: BP 132/92, HR 80, RR 15, weight 201, temperature 97.8, oxygen saturation at room air 97%. HEENT: PERRLA, EOMI, evaluation of oropharynx showed tongue protrudes midline. NECK: Supple, no JVD. Thyroid is not palpable. LUNGS: Clear to percussion and to auscultation. Good air exchange. No wheezing or rhonchi. HEART: S1, S2 regular. No murmurs, gallops, or rubs. ABDOMEN: Soft and nontender. Bowel sounds are present. No organomegaly appreciated. EXTREMITIES: No clubbing or cyanosis. SERVICES ACCOUNT MANAGER: Awake, alert, and oriented X3. Cranial nerves 2 to 7 intact. There is no fasciculation or atrophy. noted. No focal deficits observed. IMPRESSION: 1. Obstructive sleep apnea-hypopnea syndrome in moderate range. The patient demonstrated good compliance with treatment, but reading from the machine still indicate high apnea-hypopnea index. Significant leak from the mask. 2. History of periodic limb movements documented during the titration. 3. History of atrial fibrillation. 4. Hyperlipidemia. 5. Headaches. 6. History of sinus problems. 7. Status post surgery for optic nerve tumor. 8. Status post bilateral surgery for carpal tunnel syndrome. 9. Status post right knee arthroscopic surgery. 10.Status post bilateral hip replacement. 11.Status post L4-L5 laminectomy. 12.Patient is preparing for left shoulder surgery. PLAN: 1. Patient should continue to use CPAP equipment every night for the whole night. 2. Prescription to get Simplus full face mask, medium size. 3. Watching and losing weight. 4. Sleep hygiene with regular time in bed for at least 7-1/2 to 8 hours. 5. Follow-up visit in 1-2 months to evaluate response on treatment. 6. No driving if feeling sleepiness. Thank you very much for allowing me to participate in management of your patient. Sincerely, Cory Layton MD, PhD, FAASM Diplomat of [place] [employer] [place] [employer] [facility] [place] MMODL / IJN: [id number] /
== END | disposition home or self-care (01) ==
LOC: SLEEP 13:33
PROVIDERS: ATTEND Internal Medicine
DX: G47.33 Obstructive sleep apnea (adult) (pediatric) (principal); E78.5 Hyperlipidemia, unspecified; R51.9 Headache, unspecified; Z96.643 Presence of artificial hip joint, bilateral; Z98.890 Other specified postprocedural states; Z86.79 Personal history of other diseases of the circulatory system; Z99.89 Dependence on other enabling machines and devices; Z79.899 Other long term (current) drug therapy

== ENCOUNTER → 2020-10-15 | Outpatient (CLI) | payer MEDICARE, BC ==
--- NOTE | 2020-10-16 07:25 | XR ---
EXAMINATION TYPE: XR chest 2V DATE OF EXAM: 10/15/2020 COMPARISON: None INDICATION: A. Fib TECHNIQUE: Frontal and lateral views of the chest are obtained. FINDINGS: The heart size is normal. The pulmonary vasculature is normal. The lungs are clear. IMPRESSION: 1. No acute pulmonary process.
== END | disposition home or self-care (01) ==
LOC: RAD 16:45
PROVIDERS: ATTEND Internal Medicine
DX: R06.2 Wheezing (principal)
CPT/HCPCS: 71046

== ENCOUNTER → 2020-11-24 | Outpatient (CLI) | payer MEDICARE, BC ==
[2020-11-24 09:05] LABS: HCT 42.4 % (39.0-53.0); MCHC 33.1 g/dL (31.0-37.0); MCV 87.5 fL (80.0-100.0); Mean Platelet Volume 7.2; Platelet Count 210 k/uL (150-450); RBC 4.84 m/uL (4.30-5.90); RDW 13.4 % (11.5-15.5); WBC 7.5 k/uL (3.8-10.6)
[2020-11-24 10:14] LABS: Potassium 4.6 mmol/L (3.5-5.1)
== END | disposition home or self-care (01) ==
LOC: LABPAT 08:00
PROVIDERS: ATTEND Internal Medicine Interventional Cardiology
DX: Z01.818 Encounter for other preprocedural examination (principal); R94.39 Abnormal result of other cardiovascular function study
CPT/HCPCS: 36415; 80051; 82565; 84520; 85027

== ENCOUNTER 2020-11-30 07:57 | Day surgery (SDC) | payer MEDICARE, BC ==
[2020-11-26 09:44] VITALS: BMI 27.9
[~2020-11-30 07:57] MED LIST changes: +ALPRAZolam 0.25 MG TAB PO PRN; +ALPRAZolam 0.5 MG TAB PO PRN; +ASPIRIN 325 MG TAB PO ONE; +HEPARIN SODIUM,PORCINE 10,000 UNIT in SODIUM CHLORIDE 0.9% 1,000 ML IRRIGATION PRN; +HEPARIN SODIUM,PORCINE 2,500 UNIT in SODIUM CHLORIDE 0.9% 250 ML IRRIGATION PRN; -LACTATED RINGERS 1,000 ML IV SCH; -LIDOCAINE 1% 20 ML VIAL (10MG/ML) FOR IV START INTRADERMA PRN; +NITROGLYCERIN SL TABS 0.4 MG TAB SUBLINGUAL PRN; +SODIUM CHLORIDE 0.9% 1,000 ML in EMPTY BAG 1 BAG IV ONE
[2020-11-30 08:39] VITALS: RESP 16; TEMP 98.1
[2020-11-30] MEDS ORDERED: LIDOCAINE 1% INJ 10MG/ML (20 ML MDV) ONE (08:42)
[2020-11-30] MEDS ORDERED: VERAPAMIL 2.5 MG/ML 2 ML AMP ONE (08:42)
[2020-11-30] MEDS ORDERED: HEPARIN SODIUM 1,000 UN/ML (10ML VL) ONE (08:43)
[2020-11-30] MEDS ORDERED: fentaNYL (PF) 50 MCG/ML 2 ML AMP ONE (09:00)
[2020-11-30] MEDS ORDERED: fentaNYL (PF) 50 MCG/ML 2 ML AMP IVP ONE (09:17)
[2020-11-30] MEDS ORDERED: LIDOCAINE 1% INJ 10MG/ML (20 ML MDV) SQ ONE (09:21)
[2020-11-30] MEDS ORDERED: VERAPAMIL SYRINGE (5 MG/10 ML) INTRAARTER ONE (09:25)
[2020-11-30] MEDS ORDERED: HEPARIN SODIUM 1,000 UN/ML (10ML VL) IV ONE (09:29)
[2020-11-30] MEDS ORDERED: IOPAMIDOL-370 125ML BTL INJ ONE (09:37)
[2020-11-30] MEDS ORDERED: RX INFO: IV CONTRAST WAS GIVEN 1 EACH MISC MISCELLANE PRN (10:06)
--- NOTE | 2020-11-30 10:13 | CC ---
CARDIAC CATHETERIZATION REPORT Mr. Bates is a 65-year-old male with a history of hypertension, hyperlipidemia, history of paroxysmal fibrillation, who has been evaluated to undergo shoulder surgery. Had a myocardial perfusion imaging that revealed inferolateral wall reversible defect. In view of that, recommendation regarding cardiac catheterization, the procedures, risks, and complication were discussed with the patient who is in full understanding and agreement. PROCEDURE: Patient was brought to labour market economist in a fasting semi-sedated state after receiving fentanyl and Benadryl and achieving moderate conscious sedated state using Xylocaine anesthesia and Seldinger technique, a 6-Cymro sheath was introduced in the right radial artery. Selective right and left coronary angiography were performed using 5- Cymro 3.5 bend right and left Mc catheter. Multiple views of the coronary artery including hemiaxial views were obtained. Following that 5-Cymro tight pigtail catheter was introduced into the left ventricle and a 30-degree SIMMONS view of the left ventricle was obtained. Following that, catheter and sheath were removed. Hemostasis was obtained and deployment of TR band. There was no immediate complication. The patient is returned to room in stable condition. Of note, the patient received 4500 units of intravenous heparin as well as intra-arterial verapamil. There was no immediate complication. FLUOROSCOPY: There was calcification involving the left main and the LAD. LEFT MAIN: This is a large-sized vessel, bifurcating into left circumflex, left anterior descending artery. Left main coronary artery has no evidence of high-grade stenosis. LEFT ANTERIOR DESCENDING ARTERY: This is a large-sized vessel reaching to the apex with a wraparound apex segment giving rise to a diagonal branch of moderate caliber proximally. The left anterior descending artery has no evidence of high-grade stenosis. LEFT CIRCUMFLEX: This is a large nondominant vessel, giving rise to a large obtuse marginal branch. The proximal left circumflex has a 10% plaque. The rest of the vessel has no high-grade stenosis. RIGHT CORONARY ARTERY: This is a large dominant vessel bifurcating distally PDA and posterolateral segment branches. The right coronary artery as well as branches have no evidence of obstructive coronary artery disease. LEFT VENTRICULOGRAM: Left ventriculogram was performed in 30-degree SIMMONS view and revealed normal left ventricular size and systolic function ejection fraction 60%. There was no significant mitral regurgitation. HEMODYNAMICS: There was no gradient across the aortic valve. The left ventricular end-diastolic pressure was 16-18 mmHg. CONCLUSION: 1. Mildly calcified left anterior descending and left main. 2. Minimal plaque in the left circumflex. 3. Preserved ventricular size and systolic function. RECOMMENDATION: In view of finding anatomy, continue medical therapy with aggressive risk modifications being initiated. Those findings and recommendation were discussed with the patient and his family and they are in full understanding and agreement. DURATION OF SEDATION: 20 minutes. MMTHIAGO / SHADN: [id number] /
[2020-11-30] MEDS ORDERED: SODIUM CHLORIDE 0.9% 1,000 ML IV SCH (10:15)
--- NOTE | 2020-11-30 10:19 | LTR ---
November 30, 2020 RE: Yuryericabryan Kwasi Dear Dr. Abdalla: I had the opportunity to perform cardiac catheterization on Mr. Bates at [facility] on November 30 and full copy of the procedure note will be forwarded to you. In brief, he was found to have no evidence of high-grade stenosis with mildly calcified coronary arteries. Based on those findings I recommend continue medical therapy with aggressive coronary risk factor modifications being initiated. I see no contraindication to his upcoming surgical intervention. Thank you again for allowing me the opportunity to participate in his care. Please feel free to call for any questions. Sincerely yours, MD GISELE GonzalezL / SHADN: [id number] /
[2020-11-30 14:39] VITALS: BP 148/81; PULSE 67
[2020-11-30] MEDS ORDERED: FINASTERIDE 5 MG TAB PO SCH (21:00)
[2020-11-30] MEDS ORDERED: METOPROLOL TARTRATE 50 MG TAB PO SCH (21:00)
[2020-11-30] MEDS ORDERED: TAMSULOSIN 0.4 MG CAP.ER.24H PO SCH (21:00)
[2020-12-01] MEDS ORDERED: NON FORMULARY DRUG (Ubidecarenone [Co Q-10] 100 MG Capsule) PO SCH (09:00)
[2020-12-01] MEDS ORDERED: PRAVASTATIN SODIUM 40 MG TAB PO SCH (09:00)
== END 2020-11-30 15:00 | disposition home or self-care (01) ==
LOC: CATHCVL 07:57
PROVIDERS: ATTEND Internal Medicine Interventional Cardiology
DX: I25.10 Atherosclerotic heart disease of native coronary artery without angina pectoris (principal); I48.0 Paroxysmal atrial fibrillation; I10 Essential (primary) hypertension; E78.2 Mixed hyperlipidemia; G47.33 Obstructive sleep apnea (adult) (pediatric); Z79.01 Long term (current) use of anticoagulants; Z79.899 Other long term (current) drug therapy; Z90.89 Acquired absence of other organs; Z98.890 Other specified postprocedural states; Z87.891 Personal history of nicotine dependence; Z96.649 Presence of unspecified artificial hip joint; Z86.16 Personal history of COVID-19; Z99.89 Dependence on other enabling machines and devices; Z82.49 Family history of ischemic heart disease and other diseases of the circulatory system
CPT/HCPCS: 93458; 85347; C1769; C1894; J2001; J3010; J1644; Q9967

== ENCOUNTER → 2022-03-31 | Outpatient (CLI) | payer MEDICARE, BC ==
[2022-04-01 01:39] LABS: ALT 19 U/L (10-49); AST 24 U/L (14-35); African American GFR (CKD) 81.3 (60.0-200.0); Albumin 4.1 g/dL (3.8-4.9); Albumin/Globulin Ratio 1.54 (1.60-3.17); Alkaline Phosphatase 66 U/L (41-126); BUN/Creat Ratio 17.04 Ratio (12.00-20.00); Blood Urea Nitrogen 18.4 mg/dL (9.0-27.0); Calcium 9.6 mg/dL (8.7-10.3); Carbon Dioxide 24.9 mmol/L (20.0-27.5); Chloride 104 mmol/L (96-109); Chol/HDL Ratio 3.21 Ratio; Globulin 2.7 g/dL (1.6-3.3); Glucose 86 mg/dL (70-110); LDL Cholesterol,Calculated 89.6 mg/dL (0.0-131.0); Non-African American GFR(CKD) 70.2 (60.0-200.0); Potassium 4.5 mmol/L (3.5-5.5); Sodium 136 mmol/L (135-145); Total Protein 6.8 g/dL (6.2-8.2)
== END | disposition home or self-care (01) ==
LOC: LABWHC1 08:16
PROVIDERS: ATTEND Internal Medicine Interventional Cardiology
DX: E78.2 Mixed hyperlipidemia (principal)
CPT/HCPCS: 36415; 80053; 80061

== ENCOUNTER → 2022-05-10 | Outpatient (CLI) | payer MEDICARE, BC ==
[2022-05-10 16:15] LABS: INR 1.2 (<1.2); Partial Thromboplastin Time 27.6 sec (22.0-30.0); Prothrombin Time 12.3 sec (9.0-12.0)
[2022-05-10 22:20] LABS: HGB 13.1 g/dL (13.0-17.0); MCH 28.9 pg (27.0-32.0); MCV 90.3 fL (80.0-97.0); Mean Platelet Volume 9.7 fL (9.5-12.2); NRBC Per 100 WBC 0 /100 WBCS (0.0-0.0); Platelet Count 274 X 10*3/uL (140-440); RBC 4.54 X 10*6/uL (4.40-5.60); RDW 12.2 % (11.5-14.5); WBC 6.06 X 10*3/uL (4.50-10.00)
[2022-05-10 23:39] LABS: ALT 21 U/L (10-49); AST 18 U/L (14-35); African American GFR (CKD) 80.4 (60.0-200.0); Albumin 4.4 g/dL (3.8-4.9); Albumin/Globulin Ratio 1.72 (1.60-3.17); Alkaline Phosphatase 104 U/L (41-126); BUN/Creat Ratio 23.85 Ratio (12.00-20.00); Carbon Dioxide 24.3 mmol/L (20.0-27.5); Chloride 102 mmol/L (96-109); Globulin 2.6 g/dL (1.6-3.3); Glucose 90 mg/dL (70-110); Non-African American GFR(CKD) 69.4 (60.0-200.0); Potassium 4.4 mmol/L (3.5-5.5); Sodium 139 mmol/L (135-145); Total Bilirubin <0.15 mg/dL (0.30-1.20)
== END | disposition home or self-care (01) ==
LOC: LABWHC1 14:34
PROVIDERS: ATTEND Internal Medicine
DX: Z01.812 Encounter for preprocedural laboratory examination (principal)
CPT/HCPCS: 36415; 80053; 85027; 85610; 85730

== ENCOUNTER → 2023-05-16 | Outpatient (CLI) | payer MEDICARE, BC ==
--- NOTE | 2023-05-16 08:12 | US ---
EXAMINATION TYPE: US kidneys/renal and bladder DATE OF EXAM: 05/16/2023 COMPARISON: MRI 2010, CTa 2017 CLINICAL INDICATION: Male, 68 years old with history of N28.9 RENAL INSUFFICIENCY,; Renal insufficien cy. EXAM MEASUREMENTS: Right Kidney: 10.2 x 5.3 x 4.7 cm Left Kidney: 11.4 x 5.3 x 6.6 cm Right Kidney: No hydronephrosis or masses seen Left Kidney: Anechoic area seen mid: 3.1 x 2.5 x 2.7 cm. *Hypoechoic lesion seen upper pole: 1.5 x 1.1 x 1.1 cm. Bladder: Appears anechoic. Bilateral Jets seen: Only left jet seen during exam. Prostate appears prominent in bladder imagin.6 x 4.2 x 5.3 cm. IMPRESSION: 1. No evidence for obstructive uropathy. Cortical medullary differentiation maintained. 2. Left peripelvic renal cyst. 3. Prostatomegaly correlate with serum PSA.
--- NOTE | 2023-05-16 08:13 | US ---
EXAMINATION TYPE: US Aorta Screening DATE OF EXAM: 05/16/2023 COMPARISON: MRI 2010, CTa Chest 2018 CLINICAL INDICATION: Male, 68 years old with history of Z13.6 AAA; Screening for AAA. TECHNIQUE: Multiple sonographic images of the abdominal aorta are obtained. FINDINGS: EXAM MEASUREMENTS: Abdominal Aorta: Proximal: Obscured Mid: 2.4 x 2.4 cm. Distal: 2.0 x 2.1 cm. Bifurcation: Right: 1.5 x 1.4 cm. *Upper limits. Left: 1.6 x 1.5 cm. *Slightly enlarged. SCREW DRIVER OPERATOR NOTES: Limited due to gas. IMPRESSION: No evidence for aortic aneurysm.
[2023-05-16 11:50] LABS: ALT 17 U/L (10-49); AST 15 U/L (14-35); Chol/HDL Ratio 3.23 Ratio; LDL Cholesterol,Calculated 85.8 mg/dL (0.0-131.0); VLDL Calculation 17.02 mg/dL (5.00-40.00)
== END | disposition home or self-care (01) ==
LOC: RADUSWWP 06:51
PROVIDERS: ATTEND Internal Medicine
DX: Z13.6 Encounter for screening for cardiovascular disorders (principal); N28.9 Disorder of kidney and ureter, unspecified; E78.2 Mixed hyperlipidemia
CPT/HCPCS: 76706; 76770; 80061; 84450; 84460

== ENCOUNTER → 2023-10-20 | Outpatient (CLI) | payer MEDICARE, BC ==
[2023-10-20 11:06] LABS: ALT 21 U/L (10-49); AST 19 U/L (14-35); Albumin/Globulin Ratio 1.54 Ratio (1.60-3.17); Alkaline Phosphatase 75 U/L (41-126); BUN/Creat Ratio 20.31 Ratio (12.00-20.00); Blood Urea Nitrogen 26.4 mg/dL (9.0-27.0); Calcium 9.5 mg/dL (8.7-10.3); Carbon Dioxide 27.3 mmol/L (21.6-31.8); Chloride 104 mmol/L (96-109); Chol/HDL Ratio 2.64 Ratio; Globulin 2.6 g/dL (1.6-3.3); Glucose 92 mg/dL (70-110); LDL Cholesterol,Calculated 86.6 mg/dL (0.0-131.0); Sodium 140 mmol/L (135-145); Total Bilirubin 0.5 mg/dL (0.3-1.2); Total Protein 6.6 g/dL (6.2-8.2); VLDL Calculation 11.04 mg/dL (5.00-40.00)
== END | disposition home or self-care (01) ==
LOC: LABWHC1 07:07
PROVIDERS: ATTEND Internal Medicine Interventional Cardiology
DX: E78.2 Mixed hyperlipidemia (principal)
CPT/HCPCS: 36415; 80053; 80061

== ENCOUNTER → 2024-01-29 | Outpatient (CLI) | payer MEDICARE, BC ==
[2024-01-29 11:25] LABS: INR 1.2 (<1.2); Prothrombin Time 12.8 sec (10.0-12.5)
[2024-01-29 18:18] LABS: Basophils # (A) 0.09 X 10*3/uL (0.00-0.10); Basophils % (A) 1.8 %; Eosinophils # (A) 0.29 X 10*3/uL (0.04-0.35); Eosinophils % (A) 5.7 %; HCT 40.1 % (39.6-50.0); HGB 12.8 g/dL (13.0-17.0); Lymphocytes # (A) 1.27 X 10*3/uL (0.90-5.00); MCH 30.5 pg (27.0-32.0); MCHC 31.9 g/dL (32.0-37.0); MCV 95.7 FL (80.0-97.0); Mean Platelet Volume 10.6 FL (9.5-12.2); Monocytes # (A) 0.56 X 10*3/uL (0.20-1.00); NRBC Per 100 WBC 0 X 10*3/uL (0.00-0.01); Neutrophils # (A) 2.86 X 10*3/uL (1.80-7.70); Neutrophils % (A) 56.3 %; Platelet Count 185 X 10*3/uL (140-440); RBC 4.19 X 10*6/uL (4.40-5.60); RDW 13.5 % (11.5-14.5); WBC 5.08 X 10*3/uL (4.50-10.00)
[2024-01-29 18:44] LABS: BUN/Creat Ratio 17.58 Ratio (12.00-20.00); Blood Urea Nitrogen 21.1 mg/dL (9.0-27.0); Carbon Dioxide 26.2 mmol/L (21.6-31.8); Chloride 104 mmol/L (96-109); Glucose 92 mg/dL (70-110); Potassium 4.8 mmol/L (3.5-5.5); Sodium 138 mmol/L (135-145)
[2024-01-29 18:45] LABS: ALT 28 U/L (10-49); AST 23 U/L (14-35); Albumin 4.2 g/dL (3.8-4.9); Albumin/Globulin Ratio 1.62 Ratio (1.60-3.17); Alkaline Phosphatase 79 U/L (41-126); Calcium 9.6 mg/dL (8.7-10.3); Globulin 2.6 g/dL (1.6-3.3); Total Bilirubin 0.6 mg/dL (0.3-1.2); Total Protein 6.8 g/dL (6.2-8.2)
== END | disposition home or self-care (01) ==
LOC: LABWHC1 10:13
PROVIDERS: ATTEND Internal Medicine
DX: Z01.812 Encounter for preprocedural laboratory examination (principal); Z12.5 Encounter for screening for malignant neoplasm of prostate; N40.0 Benign prostatic hyperplasia without lower urinary tract symptoms; I48.0 Paroxysmal atrial fibrillation
CPT/HCPCS: 80053; 85025; 85610; 85730; 36415; G0103

== ENCOUNTER → 2024-07-02 | Outpatient (CLI) | payer MEDICARE, BC ==
[2024-07-02 10:32] LABS: ALT 19 U/L (10-49); AST 20 U/L (14-35); Albumin/Globulin Ratio 1.82 Ratio (1.60-3.17); Alkaline Phosphatase 84 U/L (41-126); BUN/Creat Ratio 14.85 Ratio (12.00-20.00); Blood Urea Nitrogen 19.3 mg/dL (9.0-27.0); Calcium 9.1 mg/dL (8.7-10.3); Carbon Dioxide 23.9 mmol/L (21.6-31.8); Chloride 104 mmol/L (96-109); Chol/HDL Ratio 2.19 Ratio; Globulin 2.2 g/dL (1.6-3.3); Glucose 97 mg/dL (70-110); Potassium 4.4 mmol/L (3.5-5.5); Sodium 139 mmol/L (135-145); Total Bilirubin 0.8 mg/dL (0.3-1.2); Total Protein 6.2 g/dL (6.2-8.2)
== END | disposition home or self-care (01) ==
LOC: LABWHC1 06:54
PROVIDERS: ATTEND Internal Medicine Interventional Cardiology
DX: E78.2 Mixed hyperlipidemia (principal)
CPT/HCPCS: 36415; 80053; 80061

== ENCOUNTER → 2024-07-17 | Outpatient (CLI) | payer MEDICARE, BC ==
--- NOTE | 2024-07-17 12:50 | CT ---
EXAMINATION TYPE: CT brain wo con CT DLP: 1299 mGycm, Automated exposure control for dose reduction was used. DATE OF EXAM: 07/17/2024 12:41 PM COMPARISON: CT Brain and cspine facial 02/23/2014 CLINICAL INDICATION:Male, 69 years old with history of H53.9 VISION ABNORMALITIES, visual changes TECHNIQUE: Brain: Multiple axial CT images of the brain were obtained without IV contrast. . Coronal and sagitta l reformats reviewed. FINDINGS: Brain: Extra-axial spaces: No abnormal extra-axial fluid collections. Ventricular system: Within normal limits Cerebral parenchyma: No acute intraparenchymal hemorrhage or mass effect. The edwards-white junction is well differentiated. Hypoattenuating subcortical region identified within the right frontal lobe inf eriorly from prior insult. Empty sella morphology. Cerebellum: Unremarkable. Mass effect: No evidence of midline shift. Intracranial vasculature: Atherosclerotic calcifications of the intracranial vessels. Soft tissues: Normal. Calvarium/osseous structures: No depressed skull fracture. Postoperative changes of the right frontal bone. Paranasal sinuses and mastoid air cells: The mastoid air cells are clear. Mild mucosal thickening of the ethmoid sinuses. Visualized orbits: Bilateral aphakia. Punctate calcified focus within the posterior aspect of the rig ht globe redemonstrated from 2013. IMPRESSION: 1. No acute intracranial process. 2. Postsurgical changes with stable area of encephalomalacia in the right frontal lobe from prior in sult. 3. Mild ethmoid sinus disease.
== END | disposition home or self-care (01) ==
LOC: RADCTMAIN 12:11
PROVIDERS: ATTEND Internal Medicine
DX: H53.9 Unspecified visual disturbance
CPT/HCPCS: 70450

== ENCOUNTER 2024-07-24 10:20 | Day surgery (SDC) | payer MEDICARE, BC ==
[2024-07-24] MEDS: IV FLUID CONTINUATION 1,000 ML IV ONE (10:35)
[2024-07-24 10:48] VITALS: TEMP 97.7
[2024-07-24] MEDS: LACTATED RINGERS 1,000 ML IV SCH (10:53)
[2024-07-24] MEDS ORDERED: PROPOFOL 10 MG/ML 20 ML VIAL IV ONE (11:02)
--- NOTE | 2024-07-24 11:21 | P.PCN ---
Date of Procedure: 07/24/24 Procedure(s) Performed: BRIEF HISTORY: Patient is a 69-year-old pleasant white male scheduled for an elective colonoscopy as a part of evaluation for history of colon polyps. PROCEDURE PERFORMED: Colonoscopy with biopsy PREOPERATIVE DIAGNOSIS: History of colon polyps. IV sedation per Anesthesia. PROCEDURE: After informed consent was obtained, the patient, was brought into the endoscopy unit. IV sedation was administered by Anesthesia under continuous monitoring. Digital rectal examination was normal. Initially the Olympus CF-160 flexible video colonoscope was then inserted in the rectum, gradually advanced into the cecum without any difficulty. Careful examination was performed as the scope was gradually being withdrawn. Ileocecal valve and the appendiceal orifice were visualized and appeared normal. Prep was fair. Mucosa of the cecum, ascending colon, transverse colon, descending colon, sigmoid colon, and rectum appeared normal. Scattered sigmoid diverticulosis. There was a 3 mm rectal polyp was removed by cold biopsy. Retroflexion was performed in the rectum and no lesions were seen. The patient tolerated the procedure well. IMPRESSION: 3 mm rectal polyp status post removal by cold biopsy Scattered sigmoid diverticula RECOMMENDATIONS: Findings of this examination were discussed with the patient as well as his family. He was advised to follow with the biopsy results. If the biopsy reveals adenoma he can have repeat colonoscopy in 5 years.
[2024-07-24 11:40] VITALS: BP 128/73; PULSE 54; RESP 15
== END 2024-07-24 11:53 | disposition home or self-care (01) ==
LOC: ORWHC2ENDO 10:20
PROVIDERS: ATTEND Internal Medicine Gastroenterology
DX: Z12.11 Encounter for screening for malignant neoplasm of colon (principal); D12.8 Benign neoplasm of rectum; K57.30 Diverticulosis of large intestine without perforation or abscess without bleeding; I10 Essential (primary) hypertension; E78.5 Hyperlipidemia, unspecified; I48.91 Unspecified atrial fibrillation; G47.33 Obstructive sleep apnea (adult) (pediatric); K21.9 Gastro-esophageal reflux disease without esophagitis; F10.90 Alcohol use, unspecified, uncomplicated; Z86.010 Personal history of colon polyps; Z79.01 Long term (current) use of anticoagulants; Z79.899 Other long term (current) drug therapy; Z91.030 Bee allergy status; Z98.890 Other specified postprocedural states
CPT/HCPCS: 88305; 45380; J2704

== ENCOUNTER → 2025-02-17 | Outpatient (CLI) | payer MEDICARE, OTHER ==
[2025-02-17 10:15] LABS: Basophils # (A) 0.09 X 10*3/uL (0.00-0.10); Basophils % (A) 2.2 %; Eosinophils # (A) 0.31 X 10*3/uL (0.04-0.35); Eosinophils % (A) 7.6 %; HCT 38.7 % (39.6-50.0); HGB 12.3 g/dL (13.0-17.0); Lymphocytes # (A) 1.22 X 10*3/uL (0.90-5.00); MCH 30.8 pg (27.0-32.0); MCHC 31.8 g/dL (32.0-37.0); MCV 96.8 FL (80.0-97.0); Monocytes % (A) 12.3 %; NRBC Per 100 WBC 0 X 10*3/uL (0.00-0.01); Neutrophils # (A) 1.93 X 10*3/uL (1.80-7.70); Neutrophils % (A) 47.7 %; Platelet Count 181 X 10*3/uL (140-440); RDW 13.5 % (11.5-14.5); WBC 4.06 X 10*3/uL (4.50-10.00)
[2025-02-17 11:08] LABS: ALT 18 U/L (10-49); AST 26 U/L (14-35); Albumin/Globulin Ratio 1.82 Ratio (1.60-3.17); Alkaline Phosphatase 71 U/L (41-126); BUN/Creat Ratio 16.14 Ratio (12.00-20.00); Blood Urea Nitrogen 22.6 mg/dL (9.0-27.0); Calcium 9.1 mg/dL (8.7-10.3); Carbon Dioxide 24.9 mmol/L (21.6-31.8); Chloride 106 mmol/L (96-109); Chol/HDL Ratio 2.13 Ratio; Globulin 2.2 g/dL (1.6-3.3); Glucose 94 mg/dL (70-110); Magnesium 2.1 mg/dL (1.5-2.4); Potassium 4.4 mmol/L (3.5-5.5); Sodium 139 mmol/L (135-145); Total Bilirubin 0.9 mg/dL (0.3-1.2); Total Protein 6.2 g/dL (6.2-8.2); VLDL Calculation 7.98 mg/dL (5.00-40.00)
== END | disposition home or self-care (01) ==
LOC: LABWHC1 07:01
PROVIDERS: ATTEND Internal Medicine
DX: Z00.00 Encounter for general adult medical examination without abnormal findings (principal); Z12.5 Encounter for screening for malignant neoplasm of prostate; E78.2 Mixed hyperlipidemia; N40.0 Benign prostatic hyperplasia without lower urinary tract symptoms
CPT/HCPCS: 80061; 80053; 84443; 83735; 85025; 36415; G0103

== ENCOUNTER → 2025-05-27 | Outpatient (CLI) | payer MEDICARE, OTHER ==
[2025-05-27 10:52] LABS: HCT 39.3 % (39.6-50.0); HGB 12.7 g/dL (13.0-17.0); MCH 30.9 pg (27.0-32.0); MCHC 32.3 g/dL (32.0-37.0); MCV 95.6 FL (80.0-97.0); NRBC Per 100 WBC 0 X 10*3/uL (0.00-0.01); Platelet Count 190 X 10*3/uL (140-440); RBC 4.11 X 10*6/uL (4.40-5.60); RDW 13.2 % (11.5-14.5); WBC 5.39 X 10*3/uL (4.50-10.00)
[2025-05-27 10:55] LABS: Ferritin 121.0 ng/mL (22.0-322.0); Iron 94.0 UG/DL (65-175); Total Iron Binding Capacity 308.0 UG/DL (228-460)
== END | disposition home or self-care (01) ==
LOC: LABWHC1 07:19
PROVIDERS: ATTEND Internal Medicine
DX: D50.9 Iron deficiency anemia, unspecified (principal)
CPT/HCPCS: 36415; 82728; 83540; 83550; 85027